=== PATIENT | male | born 1985 | race Caucasian/White ===

== ENCOUNTER 2018-09-13 14:45 | Emergency (ER) | payer OTHER ==
[~2018-09-13] VITALS: Ht 182.9 cm; Wt 36.2 kg
[2018-09-13] MEDS ORDERED: MORPHINE 4 MG/ML 1ML VIAL/SYRINGE (J2270) IV ONE ×2 (15:00→15:45)
[2018-09-13] MEDS ORDERED: diazePAM 5 MG TAB PO ONE (15:00)
--- NOTE | 2018-09-13 15:09 | REP ---
Clinical: Rule out dislocation. Pain. Technique: AP neutral and Y views of the left shoulder. Findings: Anteroinferior glenohumeral joint dislocation is appreciated. No acute fracture. Impression: Anteroinferior glenohumeral joint dislocation. Electronically Signed by Marvin Dalton MD 09/13/2018 03:01 P
[2018-09-13] MEDS ORDERED: NORC1TAB7 PO (16:33)
[2018-09-13] MEDS ORDERED: NAPR-837 PO (16:33)
[2018-09-13 16:42] VITALS: BP 122/60
--- NOTE | 2018-09-13 16:45 | REP ---
Clinical: Status post reduction. Technique: Portable neutral view of the left shoulder. Findings: Satisfactory reduction at the glenohumeral joint is suggested. The acromioclavicular joint is normal. No obvious acute fracture. Impression: Satisfactory reduction at the glenohumeral joint suggested. Electronically Signed by Marvin Dalton MD 09/13/2018 04:36 P
== END 2018-09-13 16:45 | disposition home or self-care (01) ==
LOC: M ED 14:45
DX: S43.005A Unspecified dislocation of left shoulder joint, initial encounter (principal); X58.XXXA Exposure to other specified factors, initial encounter; Y92.099 Unspecified place in other non-institutional residence as the place of occurrence of the external cause; Y93.44 Activity, trampolining; Y99.9 Unspecified external cause status
CPT/HCPCS: 23650; 73020; 73030; 96374; 96376; 99284; J2270

== ENCOUNTER → 2019-04-28 | Outpatient (CLI) | payer OTHER ==
[~2019-04-28] MED LIST: NAPR-837 PO; NORC1TAB7 PO
--- NOTE | 2019-04-29 11:30 | REP ---
Clinical: Left shoulder instability. Technique: Axial noncontrast images through the left shoulder with coronal and sagittal re-formations. Findings: The clavicle along with the sternoclavicular joint and the shoulder including the acromioclavicular joint, glenohumeral joint, proximal humerus and scapula are all normal in appearance. No osteoarthritic degenerative changes are appreciated. No evidence for acute or healed injury. Surrounding musculature and soft tissue structures appear normal. No obvious effusion. Impression: Normal noncontrast CT of the left shoulder. Electronically Signed by Marvin Dalton MD 04/29/2019 10:41 A
== END ==
LOC: M RAD 12:52
DX: M25.312 Other instability, left shoulder (principal)